=== PATIENT | female | born 1970 ===

== ENCOUNTER → 2020-03-16 12:33 | Outpatient (CLI) | payer OTHER, SELFPAY ==
--- NOTE | 2020-03-16 | PATH_ITS ---
Note [facility] Accession Number: [id number] TESTS RESULT FLAG UNITS REF RANGE LAB Clinician Provided Cytology Information No. of containers..01 Other (Miscellaneous) No. of containers..06 Previously Prepared Cytology Slide 01 RIGHT THYROID NODULE DIAGNOSIS: 02 RIGHT THYROID NODULE NEGATIVE FOR MALIGNANT CELLS. [place] CATEGORY II. SPECIMEN CONSISTS OF BENIGN FOLLICULAR CELLS, HEMOSIDERIN-LADEN MACROPHAGES, COLLOID, AND BLOOD. THIS PATTERN IS CONSISTENT WITH A COLLOID NODULE. Pathologist ICD10: 02 E04.1 01 Patient is here for follow-up of her multinodular goiter with an updated ultrasound. A year ago she had an fine-needle aspiration of 1 dominant nodule on the right which was benign. She continues have intermittent swallowing difficulty. She is also noticed she is slowly gaining weight is wondering if that could be her thyroid honnone. She had her last tab work done apparently about a year ago and it was normal. 02 Bessie Gaspar MD, Pathologist NPI- [id number] 01 Rubén Morin, Floor Layer Tile ([facility]) 01 30 CC, RED, CLEAR RECIEVED: IN CYTOLYT WITH 3 ALCOHOL FIXED AND 3 QUICK STAINED SLIDES ALSO 1 RNA VIAL WAS RECEIVED FOR FURTHER TESTING. /AMISH 03/17/2020 0805 [facility] FLAG LEGEND: L-Low Normal,H-High Normal,LL-Alert Low,HH-Alert High <-Panic Low,>-Panic High,A-Abnormal,AA-Critical Abnormal Performed at: 01 =Z [facility] [address] [place] [address], [place] [address] Mesfin Porter MD, 02 [facility] [address] [place] [phone] Maine Mcgowan MD, Performed at: 01 [facility] [address] [place] [address], [place], [place] [id number] MD Mesfin Porter MD Phone: [phone]
--- NOTE | 2020-03-16 | DI.US.S_ITS ---
PROCEDURE: US FINE NEEDLE ASPIRATION INDICATIONS: RIGHT THYROID NODULE TECHNIQUE: The indications, alternatives, benefits, risks, and complications of the procedure were explained to the patient. Written informed consent was obtained and placed in the chart. The thyroid region was examined sonographically and a site was chosen for ultrasound guided percutaneous sampling. The skin was prepared and draped in the usual fashion, and anesthetized with 1% lidocaine infiltrated from the skin down to the thyroid gland. Multiple passes were then performed, with contents emptied into an appropriate pathology specimen container. A bandage was applied to the area of access at completion of the study. COMPARISON: None. FINDINGS: Location(s) of lesion(s) sampled: Right thyroid dominant nodule. [place]: 25 gauge hypodermic needles. Number of passes: 3 Medications: 1% lidocaine for local anaesthesia. Complications: None. IMPRESSION: Successful ultrasound-guided thyroid nodule fine needle aspiration, with cytology results pending. Please see chart below for management recommendations based on cytology results. [facility] ReportingRecommendationsNon-diagnostic* Repeat US-guided FNA, with on-site cytology evaluation if possible. * Repeated non-diagnostic nodules without high suspicion US features: close observation vs surgical consult. * Consider surgery if nodule has high suspicion US features, grows >20% in 2 dimensions on followup, or patient has clinical risk factors for malignancy. Benign* If nodule has high suspicion US features: repeat US and FNA within 12 months. * If nodule has low to intermediate suspicion US features: repeat US at 12-24 months. If nodule grows (20% increase in at least 2 dimensions, with minimal increase of 2 mm or >50% change in volume), or development of new suspicious US features, then repeat FNA or continue followup. * If nodule has very low suspicion US features: followup US at >24 months. Atypia of undetermined significance, follicular lesion of undetermined significanceRepeat FNA, molecular testing, followup US, or surgical consult.Follicular neoplasm, suspicious for follicular neoplasmSurgical consult; also consider molecular testing. Suspicious for malignancySurgical consult.MalignantSurgical consult. Dictated by: Larry Capellan M.D. on 03/16/2020 at 15:47 Approved by: Larry Capellan M.D. on 03/16/2020 at 15:47
== END ==
PROVIDERS: Referring Provider Otolaryngology Facial Plastic Surgery; Visit Provider Otolaryngology Facial Plastic Surgery
DX: E04.2 Nontoxic multinodular goiter (principal)
CPT/HCPCS: 10005

== ENCOUNTER → 2021-03-05 13:09 | Outpatient (CLI) | payer OTHER, SELFPAY ==
[2021-03-05 18:27] LABS: COVID19 -Nasal RAPID Negative (Negative)
== END ==
PROVIDERS: Visit Provider Physician Assistant
DX: Z01.812 Encounter for preprocedural laboratory examination (principal); Z20.822 Contact with and (suspected) exposure to COVID-19
CPT/HCPCS: 87635

== ENCOUNTER 2021-03-07 10:14 | Day surgery (SDC) | payer OTHER, SELFPAY ==
[2021-03-07 10:41] VITALS: BP 138/86; PULSE 70; RESP 14; TEMP 36.7; O2SAT 99; BMI 25.4
[2021-03-07] MEDS: SODIUM CHLORIDE 0.9% 1,000 ML 70 ML IV (10:41)
--- NOTE | 2021-03-07 11:46 | P.HP_ITS ---
History of Present Illness History of Present Illness Date Patient Seen: 03/07/21 Time Patient Seen: 11:47 Chief complaint: SDC Narrative: Patient is a very pleasant 51-year-old female who presented for colonoscopy. No family history of colon cancer or colon polyps. No issues with diarrhea or constipation on a regular basis. Patient History Family & Social History Social History: household members spouse,children Tobacco & Substance use: Smoking Status Current some day smoker alcohol intake never Substance Use Type does not use Meds Home Medications and Allergies Home Medications Medication Instructions Recorded Confirmed Type albuterol sulfate [ProAir HFA] 2 puff INHALATION Q4H PRN 03/07/21 03/07/21 History levothyroxine [Synthroid] 25 mcg PO DAILY 03/07/21 03/07/21 History loratadine 10 mg PO DAILY 03/07/21 03/07/21 History losartan 100 mg PO DAILY 03/07/21 03/07/21 History montelukast 10 mg PO DAILY 03/07/21 03/07/21 History omeprazole 20 mg PO DAILY 03/07/21 03/07/21 History Allergies Allergy/AdvReac Type Severity Reaction Status Date / Time No Known Drug Allergies Allergy Verified 03/07/21 10:37 Review of Systems Review of Systems ROS: Yes All systems reviewed with the patient and are negative except as otherwise documented Exam Vital Signs (past 8 hours): - 03/07/21 10:41 Temperature 98.1 F Pulse Rate 70 Respiratory Rate 14 Blood Pressure 138/86 Pulse Oximetry 99 Oxygen Delivery Method Room Air Const General: cooperative, healthy appearing, comfortable and well developed Nutritional Appearance: average body habitus and well nourished [facility] Head: normal to inspection, normocephalic and atraumatic Resp Effort & Inspection: normal respiratory effort and able to speak in complete sentences Auscultation: clear to auscultation bilaterally Cardio Rate: regular rate Rhythm: regular rhythm Heart Sounds: S1 normal and S2 normal GI Palpation: soft Auscultation: normal bowel sounds Extrem Right lower extremity: no edema Left lower extremity: no edema Assessment & Plan Assessment & Plan narrative: 1. Average risk screening colonoscopy -colonoscopy today, further recommendations to follow
[2021-03-07] MEDS: fentaNYL 250 MCG/5 ML INJ IV (11:47)
[2021-03-07] MEDS: MIDAZOLAM 5 MG/5 ML VIAL IV (11:47)
--- NOTE | 2021-03-07 12:04 | PM.OP.ENDO ---
Operative Date/Time/Diagnoses Date of procedure: 03/07/21 Time of procedure: 11:49 Procedure Notes Procedure in detail: Surgeon: Samantha Skelton DO Procedure: Colonoscopy Preoperative diagnosis: 1. Screening colonoscopy, average risk Postoperative diagnosis: 1. Pandiverticulosis 2. Grade 1 internal hemorrhoids Medications: Conscious sedation using 3 mg IV of Midazolam and 100 mcg IV of Fentanyl Preanesthesia Assessment An H and P was performed/updated and the Px?s ASA class is 1. The procedure was discussed in detail with the patient. The potential risks and complications including infection, bleeding, missed lesions, perforation, need for surgery in case of perforation, prolonged hospital stay, and were explained. A brief question and answer period was allotted and once all questions were answered, informed consent was obtained. The patient was brought back to the procedure room and placed on standard monitoring. The patient?s vital signs were monitored continuously throughout the entire procedure. Prior to starting, a timeout was performed to confirm the patient?s identity, allergies, medications, and procedure. Procedure in detail The patient was placed in left lateral decubitus position and once adequate sedation was obtained a SUKHWINDER was performed. The digital rectal examination did not reveal any palpable lesions. The tip of the colonoscope was placed in the anal canal and advanced without difficulty all the way to the cecum which was identified by the appendiceal orifice and the ileocecal valve. Careful examination of all mao of the colon was performed with irrigation of any residual stool. The patient tolerated the procedure well and will be brought back to the recovery area to be discharged once criteria are met. The prep was judged to be good/excellent and adequate to identify polyps less than 5 mm. The withdrawal time was 8min. The total physician intraservice time was 14min. Complications There were no complications and estimated blood loss was minimal. Recommendations: Resume previous diet Continue outPx medications Repeat colonoscopy in 10 years An emergency contact number was given to the patient for any complications related to the procedure
[2021-03-07 12:09] VITALS: BP 131/80; PULSE 89; RESP 19; TEMP 37.3; O2SAT 99
[2021-03-07 12:14] VITALS: BP 145/91; PULSE 76; RESP 17; O2SAT 100
[2021-03-07 12:19] VITALS: BP 139/82; PULSE 72; RESP 18; TEMP 36.6; O2SAT 100
== END 2021-03-07 12:33 | disposition home or self-care (01) ==
PROVIDERS: PCP Family Medicine; Referring Provider Student in an Organized Health Care Education/Training Program; Visit Provider Student in an Organized Health Care Education/Training Program
PROC: 0DJD8ZZ Inspection of Lower Intestinal Tract, Via Natural or Artificial Opening Endoscopic (ICD-10-PCS; CPT 45378; principal; 2021-03-07 11:30)
DX: Z12.11 Encounter for screening for malignant neoplasm of colon (principal); F17.210 Nicotine dependence, cigarettes, uncomplicated; K64.0 First degree hemorrhoids; K57.30 Diverticulosis of large intestine without perforation or abscess without bleeding
CPT/HCPCS: 45378; J2250; J3010